=== PATIENT | female | born 1960 | race Caucasian/White ===

== ENCOUNTER 2020-06-29 18:59 | Outpatient (CLI) | payer OTHER | END 2020-06-29 19:00 | disposition critical access hospital (66) | LOC: EMS 18:59 | PROVIDERS: ATTEND Emergency Medicine | DX: R40.4 Transient alteration of awareness (principal) | CPT/HCPCS: A0425; A0427 ==

== ENCOUNTER 2020-06-29 19:24 | Emergency (ER) | payer OTHER ==
--- NOTE | 2020-06-29 19:53 | ED Physician Documentation ---
History of Present Illness - Stated complaint Stated Complaint: OD - Chief complaint Chief Complaint: Critical Care - History obtained from History obtained from: Patient - History of Present Illness Timing: Today Pain level max: 0 Pain level now: 0 - Additonal information Additional information: Patient is a 60-year-old female who presents to the emergency department after consuming alcohol today, marijuana and taking a narcotic pill that was bought off of the street. She said she believed it was a 20 mg oxycodone pill. Patient reportedly went unconscious and stopped breathing. Bystander CPR was performed for about 10 minutes. EMS arrived and gave 1.2 mg of Narcan. Patient immediately awoke. Patient states that she feels drowsy and tired now. She adamantly denies any suicidal or homicidal ideation. Review of Systems Ten Systems: 10 systems reviewed and negative Constitutional: denies: Fever, Chills Ears: denies: Ear pain Nose: denies: Rhinorrhea / runny nose, Congestion Cardiac: denies: Chest pain / pressure, Palpitations Respiratory: denies: Cough GI: denies: Vomiting, Diarrhea Skin: denies: Rash Musculoskeletal: denies: Neck pain, Back pain Neurologic: denies: Headache PD PAST MEDICAL HISTORY - Past Medical History Past Medical History: Yes Endocrine/Autoimmune: HyPOthyroidism - Past Surgical History Past Surgical History: No - Present Medications Home Medications: Ambulatory Orders Medication Instructions Recorded Confirmed Levothyroxine Sodium 137 mcg PO DAILY 06/29/20 06/29/20 [Levothyroxine] Methylphenidate HCl 10 mg PO DAILY 06/29/20 06/29/20 [Methylphenidate ER] Omeprazole 20 mg PO DAILY 06/29/20 06/29/20 Sumatriptan Succinate [Imitrex] 100 mg PO PRN PRN 06/29/20 06/29/20 - Allergies Allergies/Adverse Reactions: Allergies Allergy/AdvReac Type Severity Reaction Status Date / Time Penicillins Allergy Unknown Verified 06/29/20 20:30 - Living Situation Living Arrangement: reports: At home - Social History Does the pt smoke?: No Does the pt drink ETOH?: Yes Does the pt have substance abuse?: Yes Substance Use and Type: Marijuana, Prescription Pills - Family History Family history: reports: Non contributory PD ED PE NORMAL - Vitals Vital signs reviewed: Yes - General General: Alert and oriented X 3 (Mildly drowsy, but easily arousable.), No acute distress - HEENT HEENT: Other (dry lips and tongue) - Neck Neck: Supple, no meningeal sign - Cardiac Cardiac: RRR - Respiratory Respiratory: No respiratory distress, Clear bilaterally - Abdomen Abdomen: Soft, Non tender, Non distended - Derm Derm: Warm and dry - Neuro Neuro: Alert and oriented X 3 - Psych Psych: Normal mood, Normal affect Results - Vitals Vitals: Vital Signs - 24 hr 06/29/20 06/29/20 06/29/20 19:25 19:55 20:06 Temperature 35.9 C L Heart Rate 83 80 78 Respiratory 10 L 12 16 Rate Blood Pressure 124/85 H 104/76 104/73 O2 Saturation 93 92 91 L 06/29/20 06/29/20 06/29/20 20:11 20:35 21:08 Temperature Heart Rate 78 80 Respiratory 15 22 15 Rate Blood Pressure 106/71 105/74 O2 Saturation 96 95 95 06/29/20 22:24 Temperature Heart Rate 81 Respiratory 21 Rate Blood Pressure 118/84 H O2 Saturation 98 Oxygen O2 Source Room air - EKG (time done) 195 Rate: Rate (enter#) (76) Rhythm: NSR [place]: Normal Intervals: Normal [place] QRS: Normal Ischemia: Normal ST segments - Labs Labs: Laboratory Tests 06/29/20 06/29/20 06/29/20 19:51 19:51 19:51 WBC 14.8 H RBC 4.22 Hgb 14.0 Hct 42.3 MCV 100.2 H MCH 33.2 H MCHC 33.1 RDW 13.0 Plt Count 196 MPV 8.4 Neut # (Auto) 12.2 H Lymph # (Auto) 1.4 L [place] # (Auto) 0.6 Eos # (Auto) 0.2 Baso # (Auto) 0.1 Absolute Nucleated RBC 0.00 Nucleated RBC % 0.0 PT INR APTT Sodium 138 Potassium 3.1 L Chloride 104 Carbon Dioxide 21 Anion Gap 13.0 BUN 10 Creatinine 0.7 Estimated GFR (MDRD) 85 L Glucose 163 H Calcium 8.3 L Total Bilirubin 0.5 AST 239 H ALT 129 H Alkaline Phosphatase 68 Total Protein 6.3 L Albumin 3.5 Globulin 2.8 Albumin/Globulin Ratio 1.3 Lipase 23 TSH 1.67 Nasal Adenovirus (PCR) Nasal B. parapertussis DNA (PCR) Nasal Coronavir 229E PCR Nasal Coronavir HKU1 PCR Nasal Coronavir NL63 PCR Nasal Coronavir OC43 PCR Nasal Enterovir/Rhinovir PCR Nasal Influenza B PCR Nasal Influenza A PCR Nasal Parainfluen 1 PCR Nasal Parainfluen 2 PCR Nasal Parainfluen 3 PCR Nasal Parainfluen 4 PCR Nasal RSV (PCR) Nasal B.pertussis DNA PCR Nasal C.pneumoniae (PCR) Joce Human Metapneumo PCR Nasal M.pneumoniae (PCR) Nasal SARS-CoV-2 (PCR) Salicylates < 6.0 Acetaminophen < 10 L Ethyl Alcohol 163.7 06/29/20 06/29/20 20:12 21:43 WBC RBC Hgb Hct MCV MCH MCHC RDW Plt Count MPV Neut # (Auto) Lymph # (Auto) Park # (Auto) Eos # (Auto) Baso # (Auto) Absolute Nucleated RBC Nucleated RBC % PT 11.7 INR 1.1 APTT 25.2 Sodium Potassium Chloride Carbon Dioxide Anion Gap BUN Creatinine Estimated GFR (MDRD) Glucose Calcium Total Bilirubin AST ALT Alkaline Phosphatase Total Protein Albumin Globulin Albumin/Globulin Ratio Lipase TSH Nasal Adenovirus (PCR) NOT DETECTED Nasal B. parapertussis DNA (PCR) NOT DETECTED Nasal Coronavir 229E PCR NOT DETECTED Nasal Coronavir HKU1 PCR NOT DETECTED Nasal Coronavir NL63 PCR NOT DETECTED Nasal Coronavir OC43 PCR NOT DETECTED Nasal Enterovir/Rhinovir PCR NOT DETECTED Nasal Influenza B PCR NOT DETECTED Nasal Influenza A PCR NOT DETECTED Nasal Parainfluen 1 PCR NOT DETECTED Nasal Parainfluen 2 PCR NOT DETECTED Nasal Parainfluen 3 PCR NOT DETECTED Nasal Parainfluen 4 PCR NOT DETECTED Nasal RSV (PCR) NOT DETECTED Nasal B.pertussis DNA PCR NOT DETECTED Nasal C.pneumoniae (PCR) NOT DETECTED Joce Human Metapneumo PCR NOT DETECTED Nasal M.pneumoniae (PCR) NOT DETECTED Nasal SARS-CoV-2 (PCR) NOT DETECTED Salicylates Acetaminophen Ethyl Alcohol - Rads (name of study) cxr Radiology: Prelim report reviewed, EMP read contemporaneously, See rad report (IMPRESSION: Diffuse bilateral interstitial prominence likely chronic however is consistent with mild CHF. ) PD MEDICAL DECISION MAKING - ED course Complexity details: reviewed results, re-evaluated patient, considered differential, d/w patient ED course: Patient with an accidental overdose. She will be monitored in the emergency department until she is clear and coherent. She denies any suicidal or homicidal ideation. Signed out to the oncoming emergency department physician. Departure - Departure Clinical Impression: Alcohol abuse Accidental overdose Qualifiers: Encounter type: initial encounter Qualified Code(s): T50.901A - Poisoning by unspecified drugs, medicaments and biological substances, accidental (unintentional), initial encounter Condition: Stable
[2020-06-29 20:02] LABS: BASOPHILS # (AUTO) 0.1 10^3/uL (0.0-0.1); BASOPHILS % (AUTO) 0.3 %; EOSINOPHILS # (AUTO) 0.2 10^3/uL (0.0-0.7); EOSINOPHILS % (AUTO) 1.5 %; LYMPHOCYTES # (AUTO) 1.4 10^3/uL (1.5-3.5); LYMPHOCYTES % (AUTO) 9.7 %; MEAN CORPUSCULAR HEMOGLOBIN 33.2 pg (27.0-31.0); MEAN CORPUSCULAR HGB CONC 33.1 g/dL (32.0-36.0); MEAN CORPUSCULAR VOLUME 100.2 fL (81.0-99.0); MEAN PLATELET VOLUME 8.4 fL (7.9-10.8); MONOCYTES # (AUTO) 0.6 10^3/uL (0.0-1.0); MONOCYTES % (AUTO) 4.3 %; NEUTROPHILS # (AUTO) 12.2 10^3/uL (1.5-6.6); NEUTROPHILS % (AUTO) 82.4 %; PLT - PLATELET COUNT 196 10^3/uL (130-450); RED BLOOD COUNT 4.22 10^6/uL (4.20-5.40); WHITE BLOOD COUNT 14.8 x10^3/uL (4.8-10.8)
--- NOTE | 2020-06-29 20:09 | XRAY Report ---
PROCEDURE: Chest 1 View X-Ray INDICATIONS: chest pain s/p CPR TECHNIQUE: One view of the chest was acquired. COMPARISON: None FINDINGS: Surgical changes and devices: None. Lungs and pleura: No pleural effusions or pneumothorax. The lungs are hyperexpanded and demonstrate diffuse interstitial prominence likely chronic versus mild CHF. Mediastinum: Mediastinal contours appear normal. Heart size is enlarged. Bones and chest wall: No suspicious bony lesions. Overlying soft tissues appear unremarkable. IMPRESSION: Diffuse bilateral interstitial prominence likely chronic however is consistent with mild CHF. Reviewed by: Sumeet Mccartney on 06/29/2020 8:07 PM [facility] Approved by: Sumeet Mccartney on 06/29/2020 8:07 PM [facility] Station ID: [id number]
[2020-06-29 20:18] LABS: ACETAMINOPHEN < 10 ug/mL (10-30); ALBUMIN 3.5 g/dL (3.2-5.5); ALBUMIN/GLOBULIN RATIO 1.3 (1.0-2.2); ALKALINE PHOSPHATASE 68 IU/L (42-121); ALT ALANINE AMINOTRANSFERASE 129 IU/L (10-60); AST ASPARTATE AMINOTRANSFERASE 239 IU/L (10-42); BILIRUBIN,TOTAL 0.5 mg/dL (0.2-1.0); BUN - BLOOD UREA NITROGEN 10 mg/dL (6-20); CALCIUM 8.3 mg/dL (8.5-10.3); CARBON DIOXIDE - CO2 21 mmol/L (21-32); CHLORIDE 104 mmol/L (101-111); CREATININE 0.7 mg/dL (0.4-1.0); GLUCOSE 163 mg/dL (70-100); LIPASE 23 U/L (22-51); SALICYLATE < 6.0 mg/dL; TOTAL PROTEIN 6.3 g/dL (6.7-8.2)
[2020-06-29] MEDS ORDERED: SODIUM CHLORIDE 0.9% 1,000 ML IV STA ×2 (20:22)
[2020-06-29 21:53] LABS: INR 1.1 (0.8-1.2); PT - PROTHROMBIN TIME 11.7 secs (9.9-12.6)
[2020-06-29 22:01] LABS: PARTIAL THROMBOPLASTIN TIME 25.2 secs (24.9-33.3)
[2020-06-29 22:02] LABS: C. PNEUMONIAE- RESP PCR PANEL NOT DETECTED
[2020-06-30] MEDS ORDERED: MORPHINE 2 MG/ML CARPUJECT IVP STA ×3 (02:46→06:35)
[2020-06-30] MEDS ORDERED: IOVERSOL 320 100 ML VIAL IVP ONE ×2 (03:15→03:49)
--- NOTE | 2020-06-30 03:29 | ED Physician Documentation ---
ED Addendum - Addendum Addendum: 06/30/20 03:27 I received sign out from Dr. Zafar at end of his shift, plan is to reassess patient once she is awake and alert with anticipation of d/c home. She became increasingly awake and alert and I reevaluated her at approximately 1:45 AM. She is AAOx3, conversant and NAD. She speaks with a hoarse voice and only c/o chest pain. Denies dyspnea. She is comfortable with d/c home and says she wants to be discharged. However, when taken off of supplemental oxygen, she rapidly desaturates to mid/upper 80s on room air. I reviewed her CXR and there is no previous for comparison; she has "diffuse interstitial prominence likely chronic versus mild CHF" per radiologist's reading. We discussed whether she has and pulmonary diagnoses, specifically COPD; per her description, it sounds like the diagnosis was suspected based on previous chest xrays but that she has not received a formal diagnosis and has not had pulmonary function tests nor seen a linux unix system administrator. She does not use oxygen at home. I recommended she consider admission to the hospital for further observation given her hypoxia, but she is resistant to this. She also did not want to stay in ED for observation (she was not argumentative, but clearly preferred to be discharged). She agreed to at least allow us to do a "road test", and I was present when this was undertaken. After only walking from bed to the doorway of her room (4-5 steps), on room air her oxygen level dropped steadily down to as low as 77% and she appeared shaky and unsteady. She reported feeling lightheaded/dizzy and "suddenly I feel like I'm a hundred years old". She was helped back to the bed and c/o severe chest pain which improved gradually in correlation to her pulse ox improvement (with NRB oxygen, slowly improved to lower/mid 90s, also correlating with appearing increasingly comfortable). In reviewing her previous CXR, I notice a low right rib fracture (appears to be 9th rib), as well. EKG has no acute/concerning findings. I suspect small right pneumothorax on repeat cxr, and thus ordered CT chest which confirms right pneumothorax as well as multiple right rib fractures. 06/30/20 05:28 D/W Dr. John (ED at [facility]), accepts transfer. Will be transported by ALS ground (stable during ED stay, and air transport has potential to worsen pneumothorax) 06/30/20 08:30
[2020-06-30] MEDS ORDERED: LORazepam 2 MG/ML VIAL IVP STA (04:01)
[2020-06-30 04:42] LABS: BILIRUBIN,URINE NEGATIVE (NEGATIVE); GLUCOSE, URINE (UA) NEGATIVE (NEGATIVE); KETONES,URINE (UA) NEGATIVE (NEGATIVE); LEUKOCYTE ESTERASE, URINE NEGATIVE (NEGATIVE); MUDS CUTOFF CONCENTRATIONS CUTOFF CONC BELOW:; NITRITE,URINE NEGATIVE (NEGATIVE); OCCULT BLOOD,URINE TRACE-LYSE (NEGATIVE); PROTEIN,URINE NEGATIVE (NEGATIVE); UROBILINOGEN,URINE 0.2 (NORMAL) E.U./dL (NORMAL)
[2020-06-30 04:43] LABS: CLARITY,URINE CLEAR (CLEAR); HCG UR QUAL NEGATIVE
[2020-06-30 05:20] LABS: AMPHETAMINE SCREEN,URINE NEGATIVE (NEGATIVE); BENZODIAZEPINES SCREEN, URINE POSITIVE (NEGATIVE); COCAINE SCREEN URINE NEGATIVE (NEGATIVE); METHADONE SCREEN, URINE NEGATIVE (NEGATIVE); METHAMPHETAMINES SCREEN, URINE NEGATIVE (NEGATIVE); OPIATE SCREEN, URINE POSITIVE (NEGATIVE); OXYCODONE SCREEN, URINE NEGATIVE (NEGATIVE); PROPOXYPHENE SCREEN, URINE NEGATIVE (NEGATIVE); TRICYCLIC ANTIDEPRESSANT,URINE NEGATIVE (NEGATIVE)
[2020-06-30 06:11] VITALS: BP 139/84
--- NOTE | 2020-06-30 08:21 | CT Report ---
PROCEDURE: CHEST W INDICATIONS: chest pain, hypoxia, rib fracture CONTRAST: IV CONTRAST: Optiray 320 ml: 100 PO CONTRAST: *NO PO CONTRAST TECHNIQUE: After the administration of intravenous contrast, 5 mm thick sections acquired from the pulmonary api desi to the posterior costophrenic angles. 7 mm thick coronal MIP reformats were acquired. For radia tion dose reduction, the following was used: automated exposure control, adjustment of mA and/or kV according to patient size. COMPARISON: None. FINDINGS: Image quality: Excellent. Lungs and pleura: There is a finding of bilateral alveolar consolidation dependently at each posteri or lung base, atelectasis versus mild pneumonia. Also, within the lung parenchyma on the left there a re patchy areas of mild alveolar airspace opacification, potentially a manifestation of pneumonia in this clinical circumstance, versus aspiration. No pleural effusions, but there is a small anterior r ight-sided pneumothorax. Central and peripheral airways are patent and normal in caliber. Mediastinum: Heart size is normal. No pericardial effusion. No mediastinal or hilar adenopathy by size criteria. Thoracic aorta and central pulmonary arteries are normal in size. Esophagus is beth l in caliber. No hiatal hernia. Bones and chest wall: No suspicious bony lesions suggestive of infection or neoplasm but there are a cute appearing right-sided anterolateral rib fractures from ribs 2 through 7, and also a left-sided a cute appearing rib fracture at the fifth. There is a questionable lucency potentially a slight fractu re at the right margin of the sternum, but this is a questionable finding.. No vertebral body compre ssion fractures. No axillary or supraclavicular adenopathy by size criteria. Thyroid gland appears normal where well seen. Abdomen: Visualized upper abdominal solid organs appear normal except for hepatic steatosis. Upper abdominal bowel loops are normal in caliber. IMPRESSION: Small anterior right pneumothorax associated with a series of right-sided rib fractures as discussed, no pneumothorax on the left associated with a left-sided single rib fracture identified. Questionabl e fracture at the right margin of the sternum, doubtful. Airspace disease is present bilaterally likely representing atelectasis (versus pneumonia) at the pos terior lung bases. Patchy alveolar infiltration at the left mid and upper lung could represent mild p neumonia and/or aspiration. Hepatic steatosis incidentally noted. Reviewed by: Moustapha Richardson MD on 06/30/2020 8:19 AM PST Approved by: Moustapha Richardson MD on 06/30/2020 8:19 AM PST Station ID: [id number]
--- NOTE | 2020-06-30 09:22 | XRAY Report ---
PROCEDURE: Chest 1 View X-Ray INDICATIONS: chest pain TECHNIQUE: One view of the chest was acquired. COMPARISON: Chest xray 06/29/20. Chest CT 06/30/2020. FINDINGS: Surgical changes and devices: None. Lungs and pleura: There is a small right apical pneumothorax as well as a suspected small right basi lar pneumothorax. No leftward mediastinal shift or inferior document compression to suggest tension. Linear bibasilar opacities likely represent atelectasis. There is bony vascular prominence suggestive of mild edema. Mediastinum: The mediastinal contours appears widened which may be due to portable technique. Heart size is normal for technique. Bones and chest wall: No suspicious bony lesions. There is a mildly displaced fracture of the right seventh rib laterally. Overlying soft tissues appear unremarkable. IMPRESSION: 1. Small right pneumothorax. No definite evidence of tension. 2. Bibasilar medial atelectasis. 3. Mildly displaced fracture of the right seventh rib laterally. Concordant with preliminary report and preliminary report from concurrent chest CT. Reviewed by: Taurus Nettles MD on 06/30/2020 9:20 AM PST Approved by: Taurus Nettles MD on 06/30/2020 9:20 AM PST Station ID: [id number]
== END 2020-06-30 06:40 | disposition short-term general hospital (02) ==
LOC: ED 19:24
DX: T40.2X1A Poisoning by other opioids, accidental (unintentional), initial encounter (principal); R40.0 Somnolence; F10.10 Alcohol abuse, uncomplicated; F12.90 Cannabis use, unspecified, uncomplicated; S27.0XXA Traumatic pneumothorax, initial encounter; S22.43XA Multiple fractures of ribs, bilateral, initial encounter for closed fracture; W50.0XXA Accidental hit or strike by another person, initial encounter; R09.02 Hypoxemia; Z20.822 Contact with and (suspected) exposure to COVID-19
CPT/HCPCS: 0202U; 71045; 71260; 80053; 80306; 80307; 80320; 80329; 81003; 81025; 83690; 83880; 84443; 84484; 85025; 85610; 85730; 93005; 96361; 96374; 96375; 96376; 99285; J2060; Q9967; 81001; 87086

== ENCOUNTER 2020-06-30 06:49 | Outpatient (CLI) | payer OTHER | END 2020-06-30 06:50 | disposition short-term general hospital (02) | LOC: EMS 06:49 | DX: S22.43XA Multiple fractures of ribs, bilateral, initial encounter for closed fracture (principal); S27.0XXA Traumatic pneumothorax, initial encounter; X58.XXXA Exposure to other specified factors, initial encounter | CPT/HCPCS: A0425; A0428 ==

== ENCOUNTER 2022-11-10 11:05 | Outpatient (CLI) | payer BC ==
[2022-11-10 14:59] LABS: BASOPHILS % (AUTO) 0.5 %; EOSINOPHILS # (AUTO) 0.1 10^3/uL (0.0-0.7); EOSINOPHILS % (AUTO) 0.9 %; HCT - HEMATOCRIT 46.4 % (37.0-47.0); HGB - HEMOGLOBIN 15.3 g/dL (12.0-16.0); LYMPHOCYTES # (AUTO) 1.2 10^3/uL (1.5-3.5); LYMPHOCYTES % (AUTO) 15.3 %; MEAN CORPUSCULAR HEMOGLOBIN 33.3 pg (27.0-31.0); MEAN CORPUSCULAR VOLUME 101.1 fL (81.0-99.0); MEAN PLATELET VOLUME 9.5 fL (7.9-10.8); MONOCYTES # (AUTO) 0.6 10^3/uL (0.0-1.0); MONOCYTES % (AUTO) 7.7 %; NEUTROPHILS # (AUTO) 5.8 10^3/uL (1.5-6.6); NEUTROPHILS % (AUTO) 75.3 %; PLT - PLATELET COUNT 197 10^3/uL (130-450); RED BLOOD COUNT 4.59 10^6/uL (4.20-5.40); RED CELL DISTRIBUTION WIDTH 14.1 % (12.0-15.0); WHITE BLOOD COUNT 7.7 x10^3/uL (4.8-10.8)
[2022-11-10 15:34] LABS: % IRON SATURATION 45 % (20-50); CHOL/HDL RATIO 2.4 (<4.4); CHOLESTEROL 175 mg/dL; HDL CHOLESTEROL 72 mg/dL; IRON 140 ug/dL (28-170); LDL CHOLESTEROL,CALCULATED 93 mg/dL; LDL/HDL RATIO 1.3 (<4.4); TOTAL IRON BINDING CAPACITY 311 ug/dL (250-450); TRANSFERRIN 222 mg/dL (192-382); TRIGLYCERIDES 50 mg/dL; VLDL CHOLESTEROL 10 mg/dL
[2022-11-10 15:44] LABS: THYROID STIMULATING HORMONE 0.72 uIU/mL (0.34-5.60)
[2022-11-10 15:47] LABS: FERRITIN 56.4 ng/mL (11.0-306.8)
[2022-11-10 16:40] LABS: CRP - C-REACTIVE PROTEIN < 1.0 mg/dL (0-1.0)
[2022-11-10 21:21] LABS: ESTIMATED AVERAGE GLUCOSE 111 mg/dL (70-100); HEMOGLOBIN A1c% 5.5 % (4.27-6.07)
[2022-11-13 16:08] LABS: ANTINUCLEAR ANTIBODIES IFA Negative (.)
== END 2022-11-10 11:06 | disposition home or self-care (01) ==
LOC: LAB.S 11:05
PROVIDERS: ATTEND Registered Nurse
DX: E03.9 Hypothyroidism, unspecified (principal); K21.9 Gastro-esophageal reflux disease without esophagitis; G43.909 Migraine, unspecified, not intractable, without status migrainosus; Z13.6 Encounter for screening for cardiovascular disorders; Z13.220 Encounter for screening for lipoid disorders; G25.81 Restless legs syndrome; F10.99 Alcohol use, unspecified with unspecified alcohol-induced disorder; J30.9 Allergic rhinitis, unspecified; F17.200 Nicotine dependence, unspecified, uncomplicated; G47.00 Insomnia, unspecified
CPT/HCPCS: 36415; 80061; 82728; 83036; 83540; 83721; 84443; 84466; 85025; 86038; 86140

== ENCOUNTER 2022-12-13 14:26 | Outpatient (CLI) | payer BC ==
[2022-12-13 14:51] LABS: ALBUMIN 4.4 g/dL (3.2-5.5); ALBUMIN/GLOBULIN RATIO 1.5 (1.0-2.2); BILIRUBIN,TOTAL 0.7 mg/dL (0.2-1.0); CALCIUM 10.6 mg/dL (8.5-10.3); CREATININE 0.8 mg/dL (0.6-1.3); POTASSIUM 4.7 mmol/L (3.5-4.5); TOTAL PROTEIN 7.4 g/dL (6.4-8.9)
== END 2022-12-13 14:27 | disposition home or self-care (01) ==
LOC: LAB 14:26
PROVIDERS: ATTEND Internal Medicine
DX: G25.81 Restless legs syndrome (principal); K21.9 Gastro-esophageal reflux disease without esophagitis
CPT/HCPCS: 36415; 80053

== ENCOUNTER 2023-01-20 11:12 | Outpatient (CLI) | payer BC ==
--- NOTE | 2023-01-20 21:04 | Ultrasound Report ---
PROCEDURE: Abdomen Complete INDICATIONS: ALCHOHOL USE TECHNIQUE: Real-time scanning was performed of the abdominal and retroperitoneal organs, with image documentation. COMPARISON: None. FINDINGS: Liver: Liver shows diffusely increased echogenicity without focal mass lesion. No intrahepatic duct al dilation. Gallbladder: Sonolucent without cholelithiasis or gallbladder wall thickening. Common bile duct: 5 mm Pancreas: Visualized portions of the pancreas are within normal limits Spleen: Spleen is normal in size and homogeneous in echotexture. Kidneys: Kidneys are normal in size and echotexture. No hydronephrosis or renal calculi. No solid masses. Aorta: Calcified atherosclerotic plaque without aneurysm Iliacs: Proximal common iliac arteries are unremarkable. IVC: Intrahepatic inferior vena cava is patent. Other: No free abdominal fluid. IMPRESSION: Hepatic fatty infiltration without focal mass lesion Reviewed by: Kar Guerrero MD on 01/20/2023 8:03 PM [email or web address] Approved by: Kar Guerrero MD on 01/20/2023 8:03 PM [facility] Station ID: [id number]
== END 2023-01-20 11:13 | disposition home or self-care (01) ==
LOC: DI 11:12
PROVIDERS: ATTEND Internal Medicine
DX: L53.8 Other specified erythematous conditions (principal); K76.0 Fatty (change of) liver, not elsewhere classified

== ENCOUNTER 2023-07-13 10:50 | Emergency (ER) | payer BC ==
[2023-07-13 11:10] VITALS: O2SAT 94
--- NOTE | 2023-07-13 11:52 | ED Physician Documentation ---
History of Present Illness - Stated complaint Stated Complaint: CP - Chief complaint Chief Complaint: Cardiac - History obtained from History obtained from: Patient, EMS - History of Present Illness Pain level max: 5 Pain level now: 5 - Additonal information Additional information: Patient is a 63-year-old female who presents to the emergency department complaining of chest pain for the past 3 days. She states that has been constant. Worse with eating and drinking. No change with exertion. She smokes 2 packs/day. She states that she drinks alcohol from the time she wakes up in the morning until she goes to bed at night. Drinks vodka during the day and [place] whiskey at night. Not interested in detox at this time. No cardiac history. She states it feels like a burning. She does have a history of GERD and takes omeprazole. Has not tried anything else for the pain. No fevers. No chills. No cough. No congestion. No vomiting. No hematemesis. No dark stools or blood in the stools. No abdominal pain. No shortness of breath. No wheezing. The pain is nonradiating. Review of Systems Constitutional: denies: Fever, Chills GI: denies: Vomiting, Diarrhea Skin: denies: Rash Musculoskeletal: denies: Neck pain, Back pain Neurologic: denies: Headache PD PAST MEDICAL HISTORY - Past Medical History Past Medical History: Yes Respiratory: COPD Neuro: None Endocrine/Autoimmune: HyPOthyroidism HEENT: None Psych: Anxiety - Past Surgical History Past Surgical History: Yes - Present Medications Home Medications: Ambulatory Orders Medication Instructions Recorded Confirmed Levothyroxine Sodium 137 mcg PO DAILY 06/29/20 07/13/23 [Levothyroxine] Methylphenidate HCl 10 mg PO DAILY 06/29/20 07/13/23 [Methylphenidate ER] Omeprazole 20 mg PO DAILY 06/29/20 07/13/23 Sumatriptan Succinate [Imitrex] 100 mg PO PRN PRN 06/29/20 07/13/23 Famotidine [Pepcid] 20 mg PO BID #60 tablet 07/13/23 Sucralfate [Carafate] 1 gm PO ACHS #60 tablet 07/13/23 - Allergies Allergies/Adverse Reactions: Allergies Allergy/AdvReac Type Severity Reaction Status Date / Time Penicillins Allergy Unknown Verified 06/29/20 20:30 - Social History Does the pt smoke?: No Smoking Status: Never smoker Does the pt drink ETOH?: Yes ETOH Use: Liquor Does the pt have substance abuse?: Yes Substance Use and Type: Marijuana - Immunizations Immunizations are current?: Yes - POLST Patient has POLST: No PD ED PE NORMAL - Vitals Vital signs reviewed: Yes - General General: Alert and oriented X 3, No acute distress, Well developed/nourished - HEENT HEENT: PERRL, Moist mucous membranes - Neck Neck: Supple, no meningeal sign - Cardiac Cardiac: RRR, No murmur, Strong equal pulses - Respiratory Respiratory: No respiratory distress, Clear bilaterally - Abdomen Abdomen: Soft, Non tender, Non distended - Derm Derm: Warm and dry - Extremities Extremities: No edema, No calf tenderness / cord - Neuro Neuro: Alert and oriented X 3 - Psych Psych: Normal mood, Normal affect Results - Vitals Vitals: Vital Signs - 24 hr 07/13/23 07/13/23 10:55 14:13 Temperature 36.5 C 37.0 C Heart Rate 84 87 Respiratory 22 25 H Rate Blood Pressure 152/89 H 148/98 H O2 Saturation 94 94 Oxygen O2 Source Room air - EKG (time done) 1205 EKG releavant findings:: EKG personally interpreted by author of this note. Relevant findings are: Rate: Rate (enter#) (80) Rhythm: NSR, Other (PVC) [place]: Normal QRS: Normal Ischemia: Non specific changes, Other (LVH) - Labs Labs: Laboratory Tests 07/13/23 07/13/23 07/13/23 11:15 11:15 13:29 WBC 8.9 RBC 5.01 Hgb 16.7 H Hct 49.6 H MCV 99.0 MCH 33.3 H MCHC 33.7 RDW 13.5 Neut # (Auto) 7.2 H Lymph # (Auto) 0.9 L [place] # (Auto) 0.7 Eos # (Auto) 0.1 Baso # (Auto) 0.0 Absolute Nucleated RBC 0.00 Nucleated RBC % 0.0 Sodium 137 Potassium 3.7 Chloride 101 Carbon Dioxide 27 Anion Gap 9.0 BUN 10 Creatinine 0.5 L Estimated GFR (MDRD) 125 Glucose 109 H Calcium 9.8 Phosphorus 3.0 Magnesium 1.6 L Total Bilirubin 0.7 AST 56 H ALT 39 Alkaline Phosphatase 85 Troponin I High Sens 42.8 H* 46.2 H* Total Protein 7.0 Albumin 4.2 Globulin 2.8 Albumin/Globulin Ratio 1.5 Lipase < 10 L - Rads (name of study) cxr Relevant Findings:: Final report received, See rad report PD Medical Decision Making - ED course Complexity details: reviewed results, re-evaluated patient, considered differential (No ST elevation MN, no aortic dissection, no PE, no tension pneumothorax, no aortic aneurysm), d/w patient ED course: 63-year-old female with what sounds like worsening GERD, likely secondary to alcohol use. Symptoms resolved with GI cocktail here. Her high sensitive troponin was minimally elevated, but is unchanged on repeat and unlikely to represent acute coronary syndrome based on several days of constant symptoms. Recommend that she have an echocardiogram to evaluate for cardiomyopathy, likely secondary to alcohol use. Also recommend that she stop smoking and drinking. Offered detox. Patient refuses this at this time. Information will be given to patient at the time of discharge. Patient is asymptomatic here. We will prescribe Carafate and Pepcid in addition to her regular PPI at home. Patient counseled regarding signs and symptoms for which I believe and urgent re- evaluation would be necessary. Patient with good understanding of and agreement to plan and is comfortable going home at this time This document was made in part using voice recognition software. While efforts are made to proofread this document, sound alike and grammatical errors may occur. Departure - Departure Disposition: 01 Home, Self Care Clinical Impression: Chest pain Qualifiers: Chest pain type: unspecified Qualified Code(s): R07.9 - Chest pain, unspecified GERD (gastroesophageal reflux disease) Qualifiers: Esophagitis presence: with esophagitis Esophagitis bleeding: without hemorrhage Qualified Code(s): K21.00 - Gastro-esophageal reflux disease with esophagitis, without bleeding Condition: Good Instructions: ED Chest Pain Atypical Unkn Cause, ED GERD Follow-Up: Maude Sandhu MD [Primary Care Provider] - Within 1 week Prescriptions: Sucralfate [Carafate] 1 gm PO ACHS #60 tablet Famotidine [Pepcid] 20 mg PO BID #60 tablet Comments: Please follow up with your doctor for further care. You should have an endoscopy scheduled and this can be scheduled with your doctor. You also likely have an enlarged heart and should have an echocardiogram scheduled with your doctor as well. Alcohol and cigarettes are hard on your heart, lungs, and esophagus/stomach. It is recommended you quit both. Your prescriptions were sent to [facility] in [place]. Contact: [address] [address] Fax: Forms: PCP List Discharge Date/Time: 07/13/23 14:17
[2023-07-13 11:59] LABS: BASOPHILS % (AUTO) 0.4 %; EOSINOPHILS # (AUTO) 0.1 10^3/uL (0.0-0.7); EOSINOPHILS % (AUTO) 0.8 %; HCT - HEMATOCRIT 49.6 % (37.0-47.0); HGB - HEMOGLOBIN 16.7 g/dL (12.0-16.0); LYMPHOCYTES # (AUTO) 0.9 10^3/uL (1.5-3.5); LYMPHOCYTES % (AUTO) 9.8 %; MEAN CORPUSCULAR HEMOGLOBIN 33.3 pg (27.0-31.0); MEAN CORPUSCULAR HGB CONC 33.7 g/dL (32.0-36.0); MONOCYTES # (AUTO) 0.7 10^3/uL (0.0-1.0); MONOCYTES % (AUTO) 7.9 %; NEUTROPHILS # (AUTO) 7.2 10^3/uL (1.5-6.6); NEUTROPHILS % (AUTO) 80.8 %; RED BLOOD COUNT 5.01 10^6/uL (4.20-5.40); RED CELL DISTRIBUTION WIDTH 13.5 % (12.0-15.0)
[2023-07-13] MEDS: SUCRALFATE 1 GM/10 ML UDC PO STA (12:00)
[2023-07-13] MEDS: FAMOTIDINE 20 MG TABLET PO STA (12:00)
[2023-07-13] MEDS: MAG HYDROX/AL HYDROX/SIMETH 30 ML UDC PO STA ×2 (12:00→13:22)
[2023-07-13 12:15] LABS: ALBUMIN 4.2 g/dL (3.2-5.5); ALBUMIN/GLOBULIN RATIO 1.5 (1.0-2.2); ALKALINE PHOSPHATASE 85 IU/L (42-121); ALT ALANINE AMINOTRANSFERASE 39 IU/L (10-60); AST ASPARTATE AMINOTRANSFERASE 56 IU/L (10-42); BILIRUBIN,TOTAL 0.7 mg/dL (0.2-1.0); BUN - BLOOD UREA NITROGEN 10 mg/dL (6-20); CALCIUM 9.8 mg/dL (8.5-10.3); CARBON DIOXIDE - CO2 27 mmol/L (21-32); CHLORIDE 101 mmol/L (101-111); CREATININE 0.5 mg/dL (0.6-1.3); GFR - MDRD 125 (>89); GLUCOSE 109 mg/dL (74-104); MAGNESIUM 1.6 mg/dL (1.7-2.3); POTASSIUM 3.7 mmol/L (3.5-4.5); SODIUM 137 mmol/L (135-145)
[2023-07-13 12:17] LABS: LIPASE < 10 U/L (11-82)
[2023-07-13 12:19] LABS: WHITE BLOOD COUNT 8.9 x10^3/uL (4.8-10.8)
[2023-07-13 12:20] LABS: TROPONIN I HIGH SENSITIVITY 42.8 ng/L (2.3-14.8)
--- NOTE | 2023-07-13 12:33 | XRAY Report ---
PROCEDURE: Chest 1V INDICATIONS: CHEST PAIN TECHNIQUE: One view of the chest was acquired. COMPARISON: 06/30/2020. FINDINGS: Surgical changes and devices: None. Lungs and pleura: No pleural effusions or pneumothorax. Mild interstitial pulmonary edema. Mediastinum: Mediastinal contours appear normal. Heart size is normal. Bones and chest wall: No suspicious bony lesions. Overlying soft tissues appear unremarkable. IMPRESSION: Mild interstitial pulmonary edema. Reviewed by: Juan Carlos Ramirez MD on 07/13/2023 12:32 PM PST Approved by: Juan Carlos Ramirez MD on 07/13/2023 12:32 PM PST Station ID: [id number]
[2023-07-13] MEDS: LIDOCAINE VISCOUS 2% 15 ML ORAL SYRINGE MM STA (13:22)
[2023-07-13 14:16] VITALS: BP 148/98
== END 2023-07-13 14:17 | disposition home or self-care (01) ==
LOC: EDUNIT# → ED 10:50
DX: R07.9 Chest pain, unspecified (principal); K21.00 Gastro-esophageal reflux disease with esophagitis, without bleeding; J44.9 Chronic obstructive pulmonary disease, unspecified; E03.9 Hypothyroidism, unspecified; F17.210 Nicotine dependence, cigarettes, uncomplicated; Z79.899 Other long term (current) drug therapy
CPT/HCPCS: 36415; 71045; 80053; 83690; 83735; 84100; 84484; 85025; 93005; 99283; 99284; A9270

== ENCOUNTER 2023-11-29 10:39 | Outpatient (CLI) | payer OTHER ==
[2023-11-29 11:11] LABS: CALCIUM 9.9 mg/dL (8.5-10.3); CREATININE 0.8 mg/dL (0.6-1.3); POTASSIUM 3.8 mmol/L (3.5-4.5)
== END 2023-11-29 10:40 | disposition home or self-care (01) ==
LOC: LAB 10:39
PROVIDERS: ATTEND Internal Medicine Cardiovascular Disease
DX: I50.20 Unspecified systolic (congestive) heart failure (principal)
CPT/HCPCS: 36415; 80048

== ENCOUNTER 2024-01-31 10:52 | Outpatient (CLI) | payer OTHER ==
[2024-01-31 11:32] LABS: BASOPHILS # (AUTO) 0.1 10^3/uL (0.0-0.1); BASOPHILS % (AUTO) 0.6 %; EOSINOPHILS # (AUTO) 0.3 10^3/uL (0.0-0.7); EOSINOPHILS % (AUTO) 3.3 %; HCT - HEMATOCRIT 45.8 % (37.0-47.0); HGB - HEMOGLOBIN 15.1 g/dL (12.0-16.0); LYMPHOCYTES # (AUTO) 1.4 10^3/uL (1.5-3.5); LYMPHOCYTES % (AUTO) 18.3 %; MEAN PLATELET VOLUME 9.1 fL (7.9-10.8); MONOCYTES # (AUTO) 0.8 10^3/uL (0.0-1.0); MONOCYTES % (AUTO) 9.6 %; NEUTROPHILS # (AUTO) 5.3 10^3/uL (1.5-6.6); NEUTROPHILS % (AUTO) 67.8 %; PLT - PLATELET COUNT 218 10^3/uL (130-450); RED BLOOD COUNT 4.32 10^6/uL (4.20-5.40); RED CELL DISTRIBUTION WIDTH 15.9 % (12.0-15.0); WHITE BLOOD COUNT 7.8 x10^3/uL (4.8-10.8)
[2024-01-31 11:53] LABS: ALBUMIN/GLOBULIN RATIO 1.7 (1.0-2.2); ALKALINE PHOSPHATASE 70 IU/L (42-121); ALT ALANINE AMINOTRANSFERASE 10 IU/L (10-60); AST ASPARTATE AMINOTRANSFERASE 22 IU/L (10-42); BILIRUBIN,TOTAL 0.7 mg/dL (0.2-1.0); BUN - BLOOD UREA NITROGEN 12 mg/dL (6-20); CALCIUM 10.4 mg/dL (8.5-10.3); CARBON DIOXIDE - CO2 30 mmol/L (21-32); CHLORIDE 101 mmol/L (101-111); CHOL/HDL RATIO 2.5 (<4.4); CHOLESTEROL 181 mg/dL; CREATININE 0.9 mg/dL (0.6-1.3); GFR - MDRD 63 (>89); GLUCOSE 133 mg/dL (74-104); HDL CHOLESTEROL 73 mg/dL; LDL CHOLESTEROL,CALCULATED 91 mg/dL; LDL/HDL RATIO 1.2 (<4.4); POTASSIUM 5.1 mmol/L (3.5-4.5); SODIUM 136 mmol/L (135-145); TOTAL PROTEIN 6.4 g/dL (6.4-8.9); TRIGLYCERIDES 84 mg/dL; VLDL CHOLESTEROL 17 mg/dL
[2024-01-31 12:03] LABS: THYROID STIMULATING HORMONE 0.73 uIU/mL (0.34-5.60)
[2024-01-31 12:31] LABS: ESTIMATED AVERAGE GLUCOSE 108 mg/dL (70-100); HEMOGLOBIN A1c% 5.4 % (4.27-6.07)
--- NOTE | 2024-01-31 21:54 | XRAY Report ---
PROCEDURE: Lumbar Spine 4V INDICATIONS: LOW BACK PAIN TECHNIQUE: 3 views of the lumbar spine were acquired. COMPARISON: None. FINDINGS: Diffuse osseous demineralization. 5 [id number] vertebrae are present. Mildly exaggerated lumbar lordosis. 2 mm retrolisthesis of L2 on L3. Reidentified 1 anterolisthesis of L3 on L4. Mild intervert ebral disc height loss at L2-L3 and L5-S1. Mild-moderate multilevel facet arthropathy, most conspicuo us at L4-L5 and L5-S1. Mild hypertrophy of the L3-L5 spinous processes. No pars defects on the obliqu e views. Aortic vascular calcifications. IMPRESSION: Diffuse osseous demineralization. Mild-moderate lumbar osteoarthrosis. Reviewed by: Eldon Stein MD on 01/31/2024 9:53 PM PDT Approved by: Eldon Stein MD on 01/31/2024 9:53 PM PDT Station ID: [id number]
== END 2024-01-31 10:53 | disposition home or self-care (01) ==
LOC: LAB 10:52
PROVIDERS: ATTEND Internal Medicine
DX: F10.188 Alcohol abuse with other alcohol-induced disorder (principal); I42.6 Alcoholic cardiomyopathy; Z13.220 Encounter for screening for lipoid disorders; E03.9 Hypothyroidism, unspecified; M47.816 Spondylosis without myelopathy or radiculopathy, lumbar region; M81.0 Age-related osteoporosis without current pathological fracture
CPT/HCPCS: 36415; 80053; 80061; 83036; 83721; 84439; 84443; 84481; 85025